=== PATIENT | male | born 1990 | race African-American/Black ===

== ENCOUNTER 2017-08-24 12:41 | Inpatient (IN) | payer MEDICAID ==
[2017-08-24] VITALS (9 sets, daily range): BP systolic 114–147; BP diastolic 64–108; BMI 22.8
[2017-08-24 13:07] LABS: BASOPHILS 0.3 % (0-2); EOSINOPHILS 3.5 % (0-7); HEMATOCRIT 44.4 % (42.0-54.0); HEMOGLOBIN 15.4 g/dL (13.5-17.5); IMMATURE GRANULOCYTES 0.3 % (0-5); LYMPHOCYTES 21.6 % (15-50); MCH 31.5 pg (26.0-34.0); MCHC 34.7 g/dL (31.0-37.0); MCV 90.8 fL (80.0-100.0); MEAN PLATELET VOLUME 10.2 fL (7.4-10.4); MONOCYTES 8.4 % (2-11); NEUTROPHILS 65.9 % (40-80); PLATELET COUNT 210 10x3/uL (130-400); RBC 4.89 10x6/uL (4.20-6.10); WBC 9.2 10x3/uL (4.8-10.8)
[2017-08-24 13:18] LABS: APTT 23.3 SECONDS (22.8-39.4); INR 0.96 (0.85-1.17); PROTIME 12.6 SECONDS (11.6-15.0)
[2017-08-24 13:21] LABS: ALBUMIN 3.9 g/dL (3.4-5.0); ANION GAP 14.4 mmol/L (8-16); BILIRUBIN - TOTAL 0.36 mg/dL (0.2-1.3); CALCIUM 9.2 mg/dL (8.5-10.1); CARBON DIOXIDE 24.5 mmol/L (21.0-32.0); CREATININE - SERUM 1.3 mg/dL (0.6-1.3); POTASSIUM - SERUM 3.9 mmol/L (3.5-5.1)
--- NOTE | 2017-08-24 19:15 | NUR ---
RECEIVED CARE FROM DAY NURSE. PT IN HIGH FOWLERS POSITION. COMPANY AT SIDE. REPORTS NO NEEDS AT THIS TIME. CALL LIGHT AT SIDE.
--- NOTE | 2017-08-24 19:15 | NUR ---
RECEIVED CARE FROM DAY NURSE. PT IN BED WITH GIRLFRIEND. NO NEEDS VOICED AT THIS TIME. IV INFUSING TO LEFT AC PER ORDER. CALL LIGHT AT SIDE.
--- NOTE | 2017-08-24 23:45 | NUR ---
PT REQUEST SL IV IN RIGHT FA TO BE DC'D. DC'D WITH TIP INTACT.
[2017-08-25] VITALS (7 sets, daily range): BP systolic 105–130; BP diastolic 57–72; BMI 22.8
--- NOTE | 2017-08-25 01:07 | NUR ---
RESTING QUITLY WITH EYES CLOSED. RESP EVEN AND UNLABORED. GIRLFRIEND IN BED WITH PT. IV INFUSING TO LEFT AC PER ORDER. CALL LIGHT AT SIDE.
--- NOTE | 2017-08-25 01:25 | NUR ---
PT RATES PAIN A 9 OR 10. PO PAIN MEDS GIVEN RECENTLY. CIRCUIT COURT MAGISTRATE DILAUDID INITIATED PER ORDER. NEW ICE PACK APPLIED TO LEG. PEDAL PULSES STRONG.
--- NOTE | 2017-08-25 06:37 | NUR ---
RESTING QUIETLY WITH EYES CLOSED. RESP EVEN AND UNLAOBRED. GIRLFRIEND IN BED AT SIDE. IV INFUSING PER ORDER. CALL LIGHT AT SIDE.
--- NOTE | 2017-08-25 07:15 | NUR ---
AWAKENS WITHOUT DISTRESS.FAMILY RESTING IN BED WITH PT.DENIES NEEDS.CALL LIGHT IN REACH
--- NOTE | 2017-08-25 07:15 | NUR ---
LYING IN BED WIHTOUT DISTRESS.AWAKENS EASILY. FAMILY SLEEPING WITH PT.
--- NOTE | 2017-08-25 08:30 | NUR ---
COMPLAINTS OF SEVERE PAIN IN FX LEG, TORDAL GIVEN, ICE ON LEG, AND ELEVATED ON PILLOW, NO OTHER COMPLAINTS, WILL CONTINUE TO MONITOR
[2017-08-25] MEDS ORDERED: BUPRENORPHIN-N1 EACH SL (09:52)
--- NOTE | 2017-08-25 17:28 | NUR ---
PATIENT RESTING IN BED WITH GUEST AND DENIES NEEDS AT THIS TIME. BED IN LOWEST POSITION AND CALL LIGHT WITHIN REACH. ENCOURAGED THE PT TO CALL IF HE HAS NEEDS.
--- NOTE | 2017-08-25 17:56 | NUR ---
CM VISITED PATIENT AT BEDSIDE. FEMALE VISITOR AT BEDSIDE. PATIENT PLANS TO GO TO ANOTHER ADDRESS AT DISCHARGE SECONDARY TO THE NUMBER OF STAIRS AT PRESENT ADDRESS. HIS MOTHER AND/ OR FATHER WILL PROVIDE TANSPORTATION TO HOME. HE STATES HIS PARENTS LIVE IN [place]. CM ASK IF FINANCIAL COUNSELOR HAD VISITED HE HAS NO INSURER LISTED. HE STATES MED DATA HAD NOT VISITED. HE STATED HE HAS ASK HIS PARENTS TO BRING HIS INSURANCE CARDS WHEN THEY COME TO VISIT. STATES HIS PCP IS A FEMALE DOCTOR AT THE [facility] IN [place]. HE CANNOT RECALL HER NAME HE HAS ONLY SEEN HER A FEW TIMES. PATIENT UTILIZES [employer] ON [facility] AND [employer] FOR HIS MEDICATIONS. CM ADVISED DR HAS ORDERED CRUTCHES AT [facility]. HE IS 5FT 8 INCHES IN HEIGHT AND HIS WEIGHT IS 150 LBS. PATIENT C/O PAIN. CM WILL REVISIT WHEN HE IS MORE COMFORTABLE. PATIENT HAS DRIVER'S LICENSE REVIEWING OFFICER AVAILABLE WHICH HE WILL USE. ICE ON OPERATIVE SITE. CM TO FOLLOW TO ASSIST WITH DISCHARGE NEEDS. PLAN IS FOR DISCHARGE SUNDAY.
--- NOTE | 2017-08-25 19:07 | NUR ---
INSURANCE CARD OBTAINED AND FAXED TO ER REGISTRATION TO CORRECT FACE SHEET INFORMATION. UNABLE TO DOCUMENT IN [place]. WEBPAGE DOWN.
--- NOTE | 2017-08-25 19:14 | NUR ---
RECEIVED CARE FROM DAY NURSE. PT IN BED WITH LUIS ALBERTO AT SIDE. REPORTS NO NEEDS AT THIS TIME. IV INFUSING TO PATENT LEFT AC PER ORDER.
--- NOTE | 2017-08-25 23:41 | NUR ---
LYING IN BED WITH EYES CLOSED. RESP EVEN AND UNLABORED. CALL LIGHT AT SIDE. GIRLFRIEND IN BED WITH PT. RIGHT LEG ELEVATED ON PILLOW. ICE APPLIED. NO NEEDS NOTED.
--- NOTE | 2017-08-26 03:03 | NUR ---
PT REPORTS PAIN A 10. REPORTS IT IS THROBBING WITH NO RELIEF FROM MEAT PROCESSING CENTER MANAGER. TORODOL GIVEN PER ORDER. PEDAL PULSE PRESENT WITH NOTED INCREASE IN SWELLING. TOES WARM TO TOUCH. MEAT PROCESSING CENTER MANAGER BOLUS GIVEN WELL. EXTRA ICE PACKS APPLIED TO FACILITATE REDUCTION OF SWELLING. WILL CONTINUE TO MONITOR CLOSELY.
--- NOTE | 2017-08-26 03:22 | NUR ---
ASSESSED, PT IS ASLEEP WITH GIRLFRIEND IN BED WITH HIM. NO DISTRESS NOTED. EASY RESPIRATIONS AND NO PROBLEMS NOTED WITH LEG DRESSING AND CAST. THE BED IS LOW, RAILS UP X'S 2 AND THE CALL LIGHT AT HAND.
[2017-08-26 03:57] VITALS: BP 108/49
--- NOTE | 2017-08-26 05:49 | NUR ---
DECREASED SWELLING WITH IMPROVED PEDAL PULSE STRENGTH. REPORTS PAIN IMPROVED. TOES WARM TO TOUCH.
--- NOTE | 2017-08-26 07:30 | NUR ---
SLEEPING, GIRLFRIEND AT BEDSIDE, NO DISTRESS NOTED, CALL LIGHT IN REACH, BED LOWEST POSITION, WILL CONTINUE TO MONITOR
[2017-08-26 08:38] VITALS: BP 99/45
[2017-08-26] MEDS ORDERED: HYDROCODONE-APA1 TAB PO (09:49)
[2017-08-26 12:08] VITALS: BP 105/51
--- NOTE | 2017-08-26 12:36 | NUR ---
PATIENT ALERT/VERBAL. SITTING UP IN BED EATING LUNCH. NO COMPLAINTS. CALL LIGHT IN REACH. WILL CONTINUE TO MONITOR.
--- NOTE | 2017-08-26 13:50 | NUR ---
DISCHARGE PAPERS AND INSTRUCTIONS GIVEN, QUESTIONS ANSWERED, IV REMOVED TIP INTACT, DISCHARGED PER WC WITH BELONGINGS
--- NOTE | 2017-08-26 19:49 | NUR ---
LATE ENTRY 1015 DR ROSALES ADVISED PATIENT OF DISCHARGE TO HOME TODAY. PATIENT HAD NO PREFERRED PROVIDER FOR CRUTCHES. [facility] SELECTED PER ROTATION. TC TO [facility]. RECEIVED CB FROM CLAIRE. REVIEWED INFORMATION. FAXED FACE SHEET W/ HEIGHT AND WEIGHT & MD ORDER, CLAIRE TO DELIVER CRUTCHES TO PATIENT'S ROOM. ADVISED PRIMARY NURSE, SOLO.
--- NOTE | 2017-10-15 16:44 | OP ---
PATIENT NAME: FABI OTERO MEDICAL RECORD: [id number] :89 LOCATION:[id number] ADMISSION DATE:08/24/17 SURGEON: SUSAN ROSALES MD DATE OF OPERATION: 08/24/2017 PREOPERATIVE DIAGNOSIS: Grade IIA open distal tibia fracture of the right ankle with missing bone. POSTOPERATIVE DIAGNOSIS: Grade IIA open distal tibia fracture of the right ankle with missing bone. PROCEDURE: Open reduction internal fixation of this open tibia fracture. SURGEON: Susan Rosales MD ANESTHESIA: General. INTRAOPERATIVE COMPLICATIONS: None. SUMMARY OF PATHOLOGIC FINDINGS: The posterior lateral aspect of the tibia was evidently not available for reconstruction. The wound was quite large and quite friable. The risks, hazards, and benefits of the open injury were discussed with the patient preoperatively. OPERATIVE SUMMARY IN DETAIL: After obtaining the appropriate preoperative orthopedic surgery consent as well as anesthetic consultation, evaluation, and clearance, the patient was brought to the operating room and placed on the operating table in supine position. After general laryngeal mask airway was administered, the patient's right lower extremity was prepared with a tourniquet about the proximal aspect. The right lower extremity was then prepped and draped in routine sterile fashion. The leg was elevated and exsanguinated, tourniquet was inflated to 350 mmHg. Attention was first turned to Betadine irrigation of the wound and all nonviable-appearing tissue was excised back to bleeding tissue. The wound itself was elongated in a Z type fashion for reapproximation of the tibia, which was then plated using the [employer] plating system into the anterior aspect of the tibia. Good samaritan of alignment was achieved; however, a large posterior lateral fragment again was missing. Having completed this, attention was turned to the fibula. Incision was made along the fibula, taken down to the level of the comminuted fracture. This was realigned and a large straight plate from the ankle set from [employer] was utilized. After good fixation was achieved, OsteoSet was placed in part of the void to try and create some osteo induction. The wound was gently closed with melia except for the part that it was opened, [id number] monofilament sutures were used at this point to try and enhance healing. Having completed this, the tourniquet was deflated and a very light fluffy posterior splint was put into place. The patient was awakened, taken to the recovery room in stable condition. All final needle, instrument, and sponge counts were correct. TRANSINT:[id number] Voice Confirmation ID: [id number] DOCUMENT ID: [id number] OPERATIVE REPORT [id number] FABI OTERO MD, SUSAN DEXTER at 1644 CC: [id number] DICTATION DATE: 10/15/17 1052 BIOMETRICS TECHNICIAN: 10/15/17 1201 DIS IN 08/26/17 [place] [id number] [place] [id number]
== END 2017-08-26 13:00 | disposition home or self-care (01) | DRG 492 ==
LOC: D.ER 12:41 → D.MS 14:15 → EDBD 14:15 → D.MS 14:15
PROVIDERS: Emergency Medicine; ADMIT Orthopaedic Surgery
PROC: 0QSGXZZ Reposition Right Tibia, External Approach (ICD-10-PCS; 2017-08-24)
PROC: 0QSG04Z Reposition Right Tibia with Internal Fixation Device, Open Approach (ICD-10-PCS; principal; 2017-08-24 15:00)
DX: S82.301B Unspecified fracture of lower end of right tibia, initial encounter for open fracture type I or II (principal); S82.401B Unspecified fracture of shaft of right fibula, initial encounter for open fracture type I or II; W13.4XXA Fall from, out of or through window, initial encounter; F17.200 Nicotine dependence, unspecified, uncomplicated

== ENCOUNTER → 2018-04-24 19:56 | Outpatient (CLI) | payer MEDICAID ==
[2017-08-25 14:21] VITALS: BMI 22.8
[~2018-04-24 19:56] MED LIST: BUPRENORPHIN-N1 EACH SL; HYDROCODONE-APA1 TAB PO
[2018-04-24 20:13] LABS: UDS - AMPHET NEGATIVE QUAL (NEGATIVE); UDS - BARB NEGATIVE QUAL (NEGATIVE); UDS - BENZO NEGATIVE QUAL (NEGATIVE); UDS - COCAINE NEGATIVE QUAL (NEGATIVE); UDS - OPIATE POSITIVE QUAL (NEGATIVE); UDS - PCP NEGATIVE QUAL (NEGATIVE); UDS - THC POSITIVE QUAL (NEGATIVE)
== END | disposition home or self-care (01) ==
LOC: D.LABREF 19:56
PROVIDERS: Orthopaedic Surgery
DX: M25.562 Pain in left knee (principal)

== ENCOUNTER → 2019-03-10 10:33 | Outpatient (CLI) | payer MEDICAID ==
[2017-08-25 14:21] VITALS: BMI 22.8
== END | disposition home or self-care (01) ==
LOC: D.CT 10:30
PROVIDERS: ATTEND Clinical Nurse Specialist Family Health
DX: S82.201M Unspecified fracture of shaft of right tibia, subsequent encounter for open fracture type I or II with nonunion (principal); M25.571 Pain in right ankle and joints of right foot; X58.XXXA Exposure to other specified factors, initial encounter

== ENCOUNTER 2019-03-22 12:27 | Emergency (ER) | payer MEDICAID ==
[2019-03-22 12:28] VITALS: BMI 22.2
[2019-03-22 15:34] VITALS: BP 127/78
== END 2019-03-22 15:35 ==
LOC: D.ER 12:27
DX: M79.604 Pain in right leg (principal)